=== PATIENT | male | born 1955 | race Caucasian/White ===

== ENCOUNTER 2023-04-16 09:51 | Inpatient (IN) | payer MEDICARE, SELFPAY ==
[2023-04-16] VITALS (11 sets, daily range): BP systolic 126–154; BP diastolic 71–86; PULSE 77–95; RESP 19–32; TEMP 36–36.9; O2SAT 92–96; BMI 29.2
--- NOTE | ~2023-04-16 | XR_ITS ---
Clinical Indication: Shortness of breath PA and lateral views of the chest: Comparison: 04/19/2018 Findings: There is mild haziness at the right middle lobe, suspicious for pneumonia.. Cardiomediasti nal silhouette is within normal limits. Bones and soft tissues are unremarkable. Impression: Right middle lobe pneumonia. Reviewed, dictated and finalized at [facility]. [employer]CTION SUPPORT DEVELOPER Impression: Right middle lobe pneumonia.
--- NOTE | ~2023-04-16 | CT_ITS ---
Clinical Indication: Shortness of CT Scan of the Chest with Contrast: Technique: Contiguous sections were acquired throughout the chest after intravenous administration of 100 cc of Omnipaque 350. Dose reduction technique was used on this scan by utilizing automated expos ure control and iterative reconstruction technique. The dose-length product (DLP) was 625.21 mGy-cm. Findings: Mildly prominent left hilar, paratracheal, and left AP window lymph nodes. Coronary artery calcificat ions are present. There is no filling defect in the pulmonary arterial tree to suggest pulmonary embo gera. There is no evidence of aortic dissection or aneurysm. There is no evidence of pleural or pericardial effusion. Respiratory motion artifact limits evaluation, but there is suspected mild patchy airspace disease an d/or tree-in-bud opacities in the right lower lobe and right middle lobe, as well as possibly in the inferior portions of the right upper lobe. Questionable minimal involvement versus minimal atelectati c change at the left lung base. Images through the upper abdomen reveal no abnormalities. Impression: No evidence of pulmonary embolus, aortic dissection, or aortic aneurysm. Suspected infectious process, predominantly involving the right lower and middle lobes, as detailed a omer. Motion somewhat confounded by respiratory motion artifact. Mildly prominent lymph nodes in the mediastinum, as above, presumably reactive. Correlate clinically for any possibility of lymphoma or other metastatic disease. Reviewed, dictated and finalized at [facility]. NING COACH Impression: No evidence of pulmonary embolus, aortic dissection, or aortic aneurysm. Suspected infectious process, predominantly involving the right lower and middl e lobes, as detailed above. Motion somewhat confounded by respiratory motion ar tifact. Mildly prominent lymph nodes in the mediastinum, as above, presumably reactive. Correlate clinically for any possibility of lymphoma or other metastatic disea se.
--- NOTE | ~2023-04-16 | US_ITS ---
US venous doppler [facility] DATE: 04/16/2023 12:03 INDICATION: Swelling of the lower extremities. Elevated d-dimer. TECHNIQUE: Real-time and color flow imaging and Doppler analysis of the veins of both lower extremiti es COMPARISON: None FINDINGS: The greater saphenous veins are patent. There is spontaneous and phasic flow and normal aug mentation and color flow signal and normal compression of the deep veins of both lower extremities. There is a roughly 2.6 x 3 cm complex mixed sonolucent, echogenic and calcified structure in the righ t popliteal area, with some shadowing from the calcifications, of uncertain significance. Consider fu rther evaluation with CT or MR examination. IMPRESSION: No evidence of deep venous thrombosis of either lower extremity Complex roughly 2.6 x 3 cm partially calcified lesion in the right popliteal area of uncertain signif icance. Consider CT or MR examination lesion Reviewed, dictated and finalized at [facility]. Reviewed, dictated and finalized at [facility]. C EDUCATION ADJUNCT PROFESSOR IMPRESSION: No evidence of deep venous thrombosis of either lower extremity Complex roughly 2.6 x 3 cm partially calcified lesion in the right popliteal ar ea of uncertain significance. Consider CT or MR examination lesion
--- NOTE | 2023-04-16 10:01 | ECG_ITS ---
Measurements Intervals [place] Rate: 87 P: -52 IA: 153 QRS: 21 QRSD: 97 T: 62 QT: 359 QTc: 433 Interpretive Statements ECTOPIC ATRIAL RHYTHM LOW QRS VOLTAGE IN LIMB LEADS BASELINE ARTIFACT- II, AVR, V1-V6 ABNORMAL ECG NO PREVIOUS ECG AVAILABLE FOR COMPARISON Electronically Signed On 04-16-2023 10:32:04 [employer] by Enzo Mondragon D.O.
[2023-04-16 10:21] LABS: Basophils Absolute Auto 0.1 K/mm3 (0.0-0.1); Basophils Percent Auto 0.9 % (0.2-1.2); Eosinophils Percent Auto 0.1 % (0-4.4); Hematocrit 46.3 % (42.0-52.0); Hemoglobin 14.6 g/dL (14.0-18.0); Immature Granulocyte Absolute 0.24 K/mm3 (0.00-0.031); Immature Granulocyte Percent A 2.7 % (0-0.5); Lymphocytes Absolute Auto 1.32 K/mm3 (0.9-3.2); Lymphocytes Percent Auto 14.7 % (18.3-44.2); Mean Corpuscular HGB Conc 31.5 g/dl (32-36); Mean Platelet Volume 10.2 fl (7.4-10.4); Monocytes Absolute Auto 1.3 K/mm3 (0.1-0.6); Monocytes Percent Auto 14.2 % (2.6-8.5); Neutrophils Absolute Auto 6.1 K/mm3 (1.3-6.7); Neutrophils Percent Auto 67.4 % (45.5-73.1); Nucleated Red Blood Cells Perc 0.4 % (0.0-0.2); Platelet Count Result 250 k/mm3 (150-375); Red Blood Count 5.03 M/mm3 (4.6-6.20)
--- NOTE | 2023-04-16 10:24 | ED.SOB ---
HPI - SOB/Dyspnea General Chief Complaint: Shortness of Breath/Dyspnea <Nellie Stanford PA-C - Last Filed: 04/16/23 13:17> Stated Complaint: sob with cough <Nellie Stanford PA-C - Last Filed: 04/16/23 13:17> Time Seen by Provider: 04/16/23 09:58 <Nellie Stanford PA-C - Last Filed: 04/16/23 13:17> Source: patient <AXEL Kumar Last Filed: 04/16/23 13:17> Mode of arrival: EMS <Nellie Stanford PA-C - Last Filed: 04/16/23 13:17> Limitations: no limitations <Nellie Stanfodr PA-C - Last Filed: 04/16/23 13:17> History of Present Illness HPI Narrative: This is a 67 year old male that presents to the ER for shortness of breath. Ongoing over the last week. Reports history of COPD. Reports he has had a productive cough. Reports subjective fevers. Reports pleuritic chest pain and lower extremity edema. Oxygen saturation low 90s at urgent care. Placed on 2L NC with improvement in his symptoms and sent to the ER for further evaluation. <Nellie Stanford PA-C - Last Filed: 04/16/23 13:17> Related Data Allergies/Adverse Reactions: Allergies Allergy/AdvReac Type Severity Reaction Status Date / Time No Known Allergies Allergy Verified 04/16/23 10:00 <Nellie Stanford PA-C - Last Filed: 04/16/23 13:17> Review of Systems Review of Systems: CONSTITUTIONAL: Denies fever CARDIOVASCULAR: Reports chest pain, and edema. RESPIRATORY: Reports cough and dyspnea. <Nellie Stanford PA-C - Last Filed: 04/16/23 13:17> All systems reviewed & are unremarkable except as noted in HPI and below <Nellie Stanford PA-C - Last Filed: 04/16/23 13:17> [facility] Past Medical History Medical History: Medical History (Updated 04/16/23 @ 13:14 by Nellie Stanford PA-C) History of COPD <Nellie Stanford PA-C - Last Filed: 04/16/23 13:17> Social History Social History: Social History (Updated 04/16/23 @ 11:46 by Nellie Stanford PA-C) Smoking status: Former smoker Tobacco type: cigarettes Alcohol intake: former Substance use: never Do You Feel Safe in your Home?: Yes Lack of Transportation: No Lack of Food: Never True Current Housing: I Have Housing Concerned About Future Housing: No Difficulty Paying Gas/Electric Bills: No Difficulty Paying for Meds: No Currently Unemployed: No Education: Trade/Vocational Certificate Difficulty w/ Childcare or Family Care: No Spiritual care concerns: No <Nellie Stanford PA-C - Last Filed: 04/16/23 13:17> Exam Narrative: GENERAL: Well-appearing, well-nourished, and in no acute distress. HEAD: Normocephalic, atraumatic. EYES: PERRLA and EOMI. ENT: Nares clear, no rhinorrhea or epistaxis. Mucous membranes moist. Oropharynx without tonsillar hypertrophy exudate or other lesions. Bilateral TMs pearly humphreys non-bulging NECK: Supple. No adenopathy or masses. CHEST: No respiratory distress. Rales in the right middle and lower lobes. Expiratory wheezing in the right lung. No rhonchi HEART: Regular rate and rhythm. No murmur heard. Normal peripheral pulses. ABDOMEN: Soft, nontender, nondistended, normal active bowel sounds. EXTREMITIES: Normal range of motion. Mild non-pitting edema bilaterally. SKIN: Warm, dry, no rash. NEURO: No focal deficits. Alert and oriented x3. PSYCH: Normal mood and affect <Nellie Stanford PA-C - Last Filed: 04/16/23 13:17> Course Course Emergency Course: Patient updated on his workup and need for admission <Nellie Stanford PA-C - Last Filed: 04/16/23 13:17> CHAPLAIN/PA Physician Supervision This visit was performed by both a physician and an APC. I performed all aspects of the MDM as documented. <Lorenzo Sampson MD - Last Filed: 04/16/23 17:00> Vital Signs Vital signs: Vital Signs Temperature 98.4 F 04/16/23 09:54 Pulse Rate 93 01/05/24 09:54 Respiratory Rate 28 H 04/16/23 09:54 Blood Pressure 154/85 H 04/16/23 09:54 Pulse Oximetry 92 04/16/23 09:54
[2023-04-16 10:32] LABS: Alanine Aminotransferase 42 U/L (6-50); Albumin Level 3.8 g/dL (3.5-5.1); Alkaline Phosphatase 104 U/L (38-126); Anion Gap 9 mmol/L (8-16); Aspartate Amino Transferase 59 U/L (17-59); Blood Urea Nitrogen 11 mg/dL (9-20); Calcium 9.2 mg/dL (8.4-10.2); Carbon Dioxide 27 mmol/L (22-30); Chloride 96 mmol/L (98-107); Estimated CRCL calculation 86 ml/min; Estimated Glomerular Filt Rate > 60; Glucose 112 mg/dL (65-110); Potassium 4.1 mmol/L (3.4-5.0); Sodium 132 mmol/L (137-145)
[2023-04-16] MEDS: methylPREDNISolone SOD SUCC 125 MG VIAL IV PUSH (10:46)
[2023-04-16] MEDS: ALBUTEROL SULFATE NEB 2.5 MG/3 ML INH INHALATION (10:51)
[2023-04-16] MEDS: IPRATROPIUM BR 0.02% INH SOLN 0.5 MG/2.5 ML VIAL INHALATION (10:51)
[2023-04-16 10:54] LABS: Alveolar/Arterial O2 Gradient 100.8 mmHg; Base Excess ABG 0.8 mEq/l (+/-2.0); Fractional Inspired Oxygen 28 %; HCO3 ABG 23.8 mEq/l (22.0-26.0); Methemoglobin ABG 0.3 %THb (0-1.5); Oxygen Content ABG 18.9 %vol (16.0-22.0); Oxygen Saturation ABG 92.5 % (95.0-100.0); Oxyhemoglobin 90.3 % THb (90.0-100.0); PCO2 ABG 33.5 mmHg (35.0-45.0); PO2 ABG 59.3 mmHg (80.0-100.0); PO2 FiO2 Ratio Arterial Blood 2.12 %; Reduced Hemoglobin 8.4 %THb (0-5.0); Site Drawn RIGHT RADIAL; Total Hemoglobin 14.9 g/dL (12.0-18.0)
[2023-04-16 10:55] LABS: Device NASAL CANNULA; Modified Allen's Test Pass
[2023-04-16 10:57] LABS: Influenza A QL RT-PCR Positive (Negative); Influenza B QL RT-PCR Negative (Negative); RSV RNA, RT-PCR Negative (Negative); SARS-CoV-2 RNA PCR Negative (Negative)
[2023-04-16 11:00] LABS: D Dimer 2.27 ug/mL (<0.48)
[2023-04-16 11:03] LABS: NT Pro B Type Natriuretic Pept 185 pg/mL (19.9-100)
[2023-04-16] MEDS: OSELTAMIVIR PHOSPHATE 75 MG CAPSULE PO (12:48)
[2023-04-16] MEDS: AZITHROMYCIN 500 MG/NS 250 ML 500 MG/250 ML BAG 250 MG IVPB (12:48)
[2023-04-16 12:53] LABS: Troponin I < 0.012 ng/mL (0.000-0.034)
--- NOTE | 2023-04-16 14:29 | ADMGEN ---
This patient, Jose R Hart, was admitted to Medical Room 258-01. Patient/family oriented to hospital policies and general routines including ID bracelet, bed and alarms, visiting hours, pain management, procedures, bathroom and other care routines, personal items, smoking policy, room service/diet, and visiting hours. Information on how to activate the Rapid Response Team has been discussed. Patient/Family are encouraged to report perceived risks to care and to ask questions if they do not understand what they are told or what they should do.
--- NOTE | 2023-04-16 22:41 | PM.IMHP ---
H&P: HPI History of Present Illness Date/Time: 04/16/23 22:41 Chief Complaint: SOB Narrative: 67-year-old male presents here with shortness of breath with past medical history of COPD and pediatric asthma. Patient reports worsening shortness of breath over the last week accompanied by intermittently productive cough, subjective low-grade fevers, fatigue, and activity intolerance. Reports that in the last week he has been trying to rest at home to recover, no medications or inhalers tried. Has been unable to tolerate activity. States when he would use the stairs he would have to rest for 4-5 minutes before he was able to catch his breath. Today shortness of breath became significantly worse and patient was convinced to seek treatment in the emergency department. Has history of COPD, reports some skepticism of diagnosis but does report history of intermittent shortness of breath over the years and inhaler use ranging from once monthly to 4 times a week max. He is a former smoker. After arrival to the ED he was found to be hypoxic on room air with O2 sat ranging from 88-92%. Placed on 2 L and now maintaining O2 sat above 95%. He does not have a previous history of supplemental O2 need. Workup revealed a normal WBC, normal hgb, elevated D-dimer, mild hyponatremia, normal BNP, and +Flu A. CXR showed right middle lobe pneumonia. CTA of chest done and showed no PE and redemonstrated pneumonia. Review of Systems Review of Systems: All systems reviewed & are unremarkable except as noted in HPI and below PMFSH Past Medical History Medical History Asthma Childhood Asthma COPD (chronic obstructive pulmonary disease) Former smoker Surgical History Surgical History History of inguinal hernia repair History of surgical amputation of finger L finger x1, surgery on additional finger on left hand Social History Social History Smoking status: Former smoker Tobacco type: cigarettes Alcohol intake: former Substance use: never Do You Feel Safe in your Home?: Yes Lack of Transportation: No Lack of Food: Never True Current Housing: I Have Housing Concerned About Future Housing: No Difficulty Paying Gas/Electric Bills: No Difficulty Paying for Meds: No Currently Unemployed: No Education: Trade/Vocational Certificate Difficulty w/ Childcare or Family Care: No Spiritual care concerns: No Meds Home Medications and Allergies Allergies Allergy/AdvReac Type Severity Reaction Status Date / Time No Known Allergies Allergy Verified 04/16/23 10:00 Vital Signs Vital Signs - 24 hr 04/16/23 09:54 04/16/23 09:59 04/16/23 10:02 Temperature 98.4 F Pulse Rate 93 89 Respiratory Rate 28 H Blood Pressure 154/85 H Pulse Oximetry 92 95 Oxygen Delivery Room Air Nasal Cannula Oxygen Flow Rate 2 04/16/23 10:50 04/16/23 11:03 04/16/23 12:56 Temperature Pulse Rate 88 88 95 Respiratory Rate 23 H 23 H 25 H Blood Pressure 131/71 Pulse Oximetry 95 Oxygen Delivery Oxygen Flow Rate 04/16/23 13:41 04/16/23 14:57 04/16/23 14:46 Temperature 96.8 F L Pulse Rate 91 90 Respiratory Rate 19 32 H Blood Pressure 142/84 H 126/86 Pulse Oximetry 95 95 95 Oxygen Delivery Nasal Cannula Oxygen Flow Rate 2 04/16/23 19:59 04/16/23 20:00 Temperature 97.3 F L Pulse Rate 77 Respiratory Rate 20 Blood Pressure 127/76 Pulse Oximetry 96 96 Oxygen Delivery Nasal Cannula Oxygen Flow Rate 2 Exam Const: General: comfortable Other: [id number] respiratory distress. HENMT: Face/Nose/Sinus: Normal nares present Mouth: Yes dry mucous membranes Eyes: General: appearance normal, both eyes and all related structures Sclera: sclerae normal Pupils: Equal, round and reactive pupils present EOM: EOMs intact bilaterally Other: 3 mm bilateral Re
[2023-04-17] VITALS (8 sets, daily range): BP systolic 137–147; BP diastolic 73–83; PULSE 80–90; RESP 18–24; TEMP 36.3–36.9; O2SAT 93–96
[2023-04-17] MEDS: SODIUM CHLORIDE 0.9% IV 1,000 ML 999 ML IV CONT ×2 (01:14→02:23)
[2023-04-17] MEDS: ALBUTEROL SULFATE NEB 2.5 MG/3 ML INH INHALATION (01:51)
[2023-04-17] MEDS: IPRATROPIUM BR 0.02% INH SOLN 0.5 MG/2.5 ML VIAL INHALATION (01:51)
[2023-04-17 02:11] LABS: Lactic Acid Reflex 1.2 mmol/L (0.7-2.0)
[2023-04-17] MEDS: SODIUM CHLORIDE 0.9% IV 1,000 ML 100 ML IV CONT (05:26)
[2023-04-17 05:56] LABS: Lactic Acid Reflex 0.9 mmol/L (0.7-2.0)
[2023-04-17 05:57] LABS: Anion Gap 7 mmol/L (8-16); Blood Urea Nitrogen 14 mg/dL (9-20); Calcium 8.4 mg/dL (8.4-10.2); Carbon Dioxide 25 mmol/L (22-30); Chloride 103 mmol/L (98-107); Estimated CRCL calculation 97 ml/min; Estimated Glomerular Filt Rate > 60; Glucose 142 mg/dL (65-110); Potassium 4.2 mmol/L (3.4-5.0); Sodium 135 mmol/L (137-145)
[2023-04-17 06:02] LABS: Basophils Absolute Auto 0.1 K/mm3 (0.0-0.1); Basophils Percent Auto 0.7 % (0.2-1.2); Hematocrit 41.3 % (42.0-52.0); Hemoglobin 13.2 g/dL (14.0-18.0); Immature Granulocyte Absolute 0.34 K/mm3 (0.00-0.031); Immature Granulocyte Percent A 3.4 % (0-0.5); Lymphocytes Absolute Auto 1.35 K/mm3 (0.9-3.2); Lymphocytes Percent Auto 13.5 % (18.3-44.2); Mean Corpuscular Hemoglobin 29.6 pg (26-34); Mean Corpuscular Volume 92.6 fl (80-100); Mean Platelet Volume 9.9 fl (7.4-10.4); Monocytes Absolute Auto 0.6 K/mm3 (0.1-0.6); Monocytes Percent Auto 6.2 % (2.6-8.5); Neutrophils Absolute Auto 7.7 K/mm3 (1.3-6.7); Neutrophils Percent Auto 76.2 % (45.5-73.1); Nucleated Red Blood Cells Perc 0.2 % (0.0-0.2); Platelet Count Result 270 k/mm3 (150-375); Red Blood Count 4.46 M/mm3 (4.6-6.20); Red Cell Distribution Width 13.8 % (11.5-14.5)
[2023-04-17] MEDS: predniSONE 20 MG TABLET 40 MG PO (08:06)
[2023-04-17] MEDS: AZITHROMYCIN 500 MG/NS 250 ML 500 MG/250 ML BAG 250 MG IVPB (08:06)
[2023-04-17] MEDS: ENOXAPARIN 40 MG/0.4 ML SYRINGE SUB-Q (08:07)
[2023-04-17] MEDS: guaiFENesin 12 HR 600 MG TABCR 1200 MG PO ×2 (08:07→20:22)
[2023-04-17 08:26] LABS: MRSA (PCR) NOT DETECTED (NOT DETECTE)
--- NOTE | 2023-04-17 11:26 | PM.IMPN ---
Progress Note: A&P Assessment and Plan (1) Acute hypoxic respiratory failure: Code(s): J96.01 - Acute respiratory failure with hypoxia Status: Acute Assessment and Plan: Flu A+. Does meet SIRS criteria: HR and RR. Initial hypoxia on room air, 88-92%. CXR: right middle lobe pneumonia. CTA of chest: no evidence of pulmonary embolus, aortic dissection, or aortic aneurysm. Suspected infectious process, predominantly involving the right lower and middle lobes, as detailed above. Motion somewhat confounded by respiratory motion artifact.Mildly prominent lymph nodes in the mediastinum, as above, presumably reactive. Correlate clinically for any possibility of lymphoma or other metastatic disease. Patient currently on 3 L of O2 wean oxygen to maintain saturation greater than 92%. (2) Pneumonia: Qualifiers: Laterality: right Lung location: middle lobe of lung Pneumonia type: due to unspecified organism Qualified Code(s): J18.9 - Pneumonia, unspecified organism Code(s): J18.9 - Pneumonia, unspecified organism Status: Acute Assessment and Plan: Chest x-ray showing right middle lobe pneumonia Started on ceftriaxone and azithromycin on 04/16. Due to cocurrent COPD, will add prednisone 40 mg PO daily x5 days. Add sputum culture MRSA screen neg. Nebs PRN Continue supportive measures. (3) Influenza A: Code(s): J10.1 - Influenza due to other identified influenza virus with other respiratory manifestations Status: Acute Assessment and Plan: Patient began feeling ill 7 days ago. Tamiflu not indicated. Nebulizers p.r.n., Zofran p.r.n., Tylenol p.r.n., Mucinex scheduled, Tessalon Perles p.r.n. Subjective Date/time seen: 04/17/23 11:26 Interval history: patient states that he is feeling better today. His shortness of breath has improved. He does not have any chest pain at this time or pain with deep breathing. He does have some sputum production although not much. He continues to be on oxygen requiring 3 L at this time. Continue to try to wean oxygen. Exam Narrative: GENERAL: Comfortable, no acute distress HENMT: moist mucous membranes EYES: EOM intact b/l NECK: no lymphadenopathy RESPIRATORY: bibasilar crackles, on 3 L CARDIO: RRR GI: soft, nontender, bowel sounds present SKIN: no rashes EXTREMITIES: no edema, redness or tenderness Objective Data Vital Signs Vital Signs: Vital Signs - 24 hr 04/16/23 12:56 04/16/23 13:41 04/16/23 14:57 Temperature Pulse Rate 95 91 Respiratory Rate 25 H 19 Blood Pressure 131/71 142/84 H Pulse Oximetry 95 95 95 Oxygen Delivery Nasal Cannula Oxygen Flow Rate 2 04/16/23 14:46 04/16/23 19:59 04/16/23 20:00 Temperature 96.8 F L 97.3 F L Pulse Rate 90 77 Respiratory Rate 32 H 20 Blood Pressure 126/86 127/76 Pulse Oximetry 95 96 96 Oxygen Delivery Nasal Cannula Oxygen Flow Rate 2 04/17/23 01:52 04/17/23 01:53 04/17/23 02:01 Temperature Pulse Rate 80 90 90 Respiratory Rate 18 22 H 23 H Blood Pressure Pulse Oximetry 96 Oxygen Delivery Nasal Cannula Oxygen Flow Rate 3 04/17/23 03:10 04/17/23 08:00 Temperature 97.3 F L Pulse Rate 80 Respiratory Rate 20 Blood Pressure 137/77 Pulse Oximetry 93 94 Oxygen Delivery Nasal Cannula Oxygen Flow Rate 3 Intake/Output Intake/Output: Intake & Output 04/14/23 04/15/23 04/16/23 04/17/23 23:59 23:59 23:59 23:59 Intake Total 1240 1040 Balance 1240 1040 Meds/Results Medications: Active Medications Generic Name Dose Route Start Last Admin Trade Name Freq PRN Reason Stop Dose Admin Albuterol 2.5 mg 04/17/23 00:48 04/17/23 01:51 Albuterol Sulfate Neb 2.5 Mg/3 Ml Inh INHALATION 2.5 mg Q4HRT PRN Administration Shortness Of Breath Benzonatate 100 mg 04/17/23 01:07 Benzonatate 100 Mg Capsule PO TID PRN Cough Enoxaparin Sodium
[2023-04-17] MEDS: bisoproloL fumarate 5 MG TABLET PO (12:34)
[2023-04-18] VITALS (10 sets, daily range): BP systolic 138–178; BP diastolic 67–83; PULSE 61–93; RESP 20; TEMP 36.3–36.6; O2SAT 94–98
[2023-04-18 05:39] LABS: Basophils Absolute Auto 0.1 K/mm3 (0.0-0.1); Basophils Percent Auto 0.8 % (0.2-1.2); Hematocrit 41.2 % (42.0-52.0); Immature Granulocyte Absolute 0.73 K/mm3 (0.00-0.031); Immature Granulocyte Percent A 4.8 % (0-0.5); Lymphocytes Absolute Auto 2.03 K/mm3 (0.9-3.2); Lymphocytes Percent Auto 13.3 % (18.3-44.2); Mean Corpuscular HGB Conc 31.6 g/dl (32-36); Mean Corpuscular Hemoglobin 29.4 pg (26-34); Mean Corpuscular Volume 93.2 fl (80-100); Mean Platelet Volume 9.9 fl (7.4-10.4); Monocytes Absolute Auto 1.2 K/mm3 (0.1-0.6); Monocytes Percent Auto 7.9 % (2.6-8.5); Neutrophils Absolute Auto 11.2 K/mm3 (1.3-6.7); Neutrophils Percent Auto 73.2 % (45.5-73.1); Nucleated Red Blood Cells Perc 0.3 % (0.0-0.2); Platelet Count Result 315 k/mm3 (150-375); Red Blood Count 4.42 M/mm3 (4.6-6.20); Red Cell Distribution Width 13.9 % (11.5-14.5); White Blood Count 15.3 K/mm3 (4.5-10.0)
[2023-04-18 05:53] LABS: Alanine Aminotransferase 76 U/L (6-50); Albumin Level 3.1 g/dL (3.5-5.1); Alkaline Phosphatase 98 U/L (38-126); Anion Gap 5 mmol/L (8-16); Aspartate Amino Transferase 80 U/L (17-59); Bilirubin,Total 0.4 mg/dL (0.2-1.3); Blood Urea Nitrogen 19 mg/dL (9-20); Calcium 8.4 mg/dL (8.4-10.2); Carbon Dioxide 25 mmol/L (22-30); Chloride 106 mmol/L (98-107); Estimated CRCL calculation 97 ml/min; Estimated Glomerular Filt Rate > 60; Glucose 107 mg/dL (65-110); Sodium 136 mmol/L (137-145)
[2023-04-18] MEDS: predniSONE 20 MG TABLET 40 MG PO (08:30)
[2023-04-18] MEDS: SIMVASTATIN 20 MG TABLET 40 MG PO (08:30)
[2023-04-18] MEDS: AZITHROMYCIN 500 MG/NS 250 ML 500 MG/250 ML BAG 250 MG IVPB (08:30)
[2023-04-18] MEDS: ramipriL 5 MG CAPSULE 10 MG PO (08:30)
[2023-04-18] MEDS: guaiFENesin 12 HR 600 MG TABCR 1200 MG PO ×2 (08:30→20:07)
[2023-04-18] MEDS: ENOXAPARIN 40 MG/0.4 ML SYRINGE SUB-Q (08:31)
[2023-04-18] MEDS: bisoproloL fumarate 5 MG TABLET PO (08:31)
--- NOTE | 2023-04-18 12:30 | PM.IMPN ---
Progress Note: A&P Assessment and Plan (1) Acute hypoxic respiratory failure: Code(s): J96.01 - Acute respiratory failure with hypoxia Status: Acute Assessment and Plan: Flu A+. Does meet SIRS criteria: HR and RR. Initial hypoxia on room air, 88-92%. CXR: right middle lobe pneumonia. CTA of chest: no evidence of pulmonary embolus, aortic dissection, or aortic aneurysm. Suspected infectious process, predominantly involving the right lower and middle lobes, as detailed above. Motion somewhat confounded by respiratory motion artifact.Mildly prominent lymph nodes in the mediastinum, as above, presumably reactive. Correlate clinically for any possibility of lymphoma or other metastatic disease. Patient currently on 3 L of O2 wean oxygen to maintain saturation greater than 92%. (2) Pneumonia: Qualifiers: Laterality: right Lung location: middle lobe of lung Pneumonia type: due to unspecified organism Qualified Code(s): J18.9 - Pneumonia, unspecified organism Code(s): J18.9 - Pneumonia, unspecified organism Status: Acute Assessment and Plan: Chest x-ray showing right middle lobe pneumonia Started on ceftriaxone and azithromycin on 04/16. Due to cocurrent COPD, will add prednisone 40 mg PO daily x5 days. Add sputum culture MRSA screen neg. Nebs MARAL Continue supportive measures. (3) Influenza A: Code(s): J10.1 - Influenza due to other identified influenza virus with other respiratory manifestations Status: Acute Assessment and Plan: Patient began feeling ill 7 days ago. Tamiflu not indicated. Nebulizers p.r.n., Zofran p.r.n., Tylenol p.r.n., Mucinex scheduled, Tessalon Perles p.r.n. Subjective Date/time seen: 04/18/23 12:30 Interval history: Patient continues to have shortness of breath. Being treated for pneumonia and COPD exacerbation. His jump in white count was likely from steroids. Due to continued shortness of breath will start patient on scheduled nebulizer treatments. He continues to have cough and wheezing. Patient's cough is productive. Continue to try to wean patient off oxygen. He is currently still on 3 L. Exam Narrative: GENERAL: Comfortable, no acute distress HENMT: moist mucous membranes EYES: EOM intact b/l NECK: no lymphadenopathy RESPIRATORY: bibasilar crackles and wheezing, on 3 L, shortness of breath with talking CARDIO: RRR GI: soft, nontender, bowel sounds present SKIN: no rashes EXTREMITIES: no edema, redness or tenderness Objective Data Vital Signs Vital Signs: Vital Signs - 24 hr 04/17/23 14:55 04/17/23 20:33 04/17/23 20:00 Temperature 98.4 F 97.4 F L Pulse Rate 80 85 Respiratory Rate 24 H 20 Blood Pressure 147/83 H 144/73 H Pulse Oximetry 94 95 95 Oxygen Delivery Nasal Cannula Oxygen Flow Rate 3 04/18/23 04:43 04/18/23 08:25 Temperature 97.3 F L Pulse Rate 69 Respiratory Rate 20 Blood Pressure 156/83 H Pulse Oximetry 95 95 Oxygen Delivery Nasal Cannula Oxygen Flow Rate 3 Intake/Output Intake/Output: Intake & Output 04/15/23 04/16/23 04/17/23 04/18/23 23:59 23:59 23:59 23:59 Intake Total 1240 1920 1090 Balance 1240 1920 1090 Meds/Results Medications: Active Medications Generic Name Dose Route Start Last Admin Trade Name Freq PRN Reason Stop Dose Admin Albuterol 2.5 mg 04/18/23 14:00 Albuterol Sulfate Neb 2.5 Mg/3 Ml Inh INHALATION Q6HRT [facility] Benzonatate 100 mg 04/17/23 01:07 Benzonatate 100 Mg Capsule PO TID PRN Cough Bisoprolol Fumarate 5 mg 04/18/23 09:00 04/18/23 08:31 Bisoprolol Fumarate 5 Mg Tablet PO 5 mg DAILY [facility] Administration Enoxaparin Sodium 40 mg 04/17/23 09:00 04/18/23 08:31 Enoxaparin 40 Mg/0.4 Ml Syringe SUB-Q 40 mg DAILY [facility] Administration Guaifenesin 1,200 mg 04/17/23 09:00 04/18/23 08:30 Guaifenesin 12 Hr 600 Mg Tabcr PO 1,200 mg Q12HR [facility]
[2023-04-18] MEDS: IPRATROPIUM BR 0.02% INH SOLN 0.5 MG/2.5 ML VIAL INHALATION ×2 (15:06→19:48)
[2023-04-18] MEDS: ALBUTEROL SULFATE NEB 2.5 MG/3 ML INH INHALATION ×2 (15:06→19:48)
[2023-04-19] VITALS (13 sets, daily range): BP systolic 147–176; BP diastolic 67–86; PULSE 64–74; RESP 18–20; TEMP 36–36.5; O2SAT 94–100
[2023-04-19 06:19] LABS: Hematocrit 40.5 % (42.0-52.0); Hemoglobin 12.5 g/dL (14.0-18.0); Mean Corpuscular HGB Conc 30.9 g/dl (32-36); Mean Corpuscular Hemoglobin 29.6 pg (26-34); Mean Corpuscular Volume 95.7 fl (80-100); Platelet Count Result 301 k/mm3 (150-375); Red Blood Count 4.23 M/mm3 (4.6-6.20); Red Cell Distribution Width 14.1 % (11.5-14.5)
[2023-04-19 06:48] LABS: Alanine Aminotransferase 67 U/L (6-50); Albumin Level 2.9 g/dL (3.5-5.1); Alkaline Phosphatase 87 U/L (38-126); Anion Gap 4 mmol/L (8-16); Aspartate Amino Transferase 45 U/L (17-59); Bilirubin,Total 0.3 mg/dL (0.2-1.3); Blood Urea Nitrogen 16 mg/dL (9-20); Calcium 8.1 mg/dL (8.4-10.2); Carbon Dioxide 27 mmol/L (22-30); Chloride 105 mmol/L (98-107); Estimated CRCL calculation 111 ml/min; Estimated Glomerular Filt Rate > 60; Glucose 81 mg/dL (65-110); Potassium 3.8 mmol/L (3.4-5.0); Sodium 136 mmol/L (137-145)
[2023-04-19] MEDS: ALBUTEROL SULFATE NEB 2.5 MG/3 ML INH INHALATION ×3 (07:10→22:04)
[2023-04-19] MEDS: IPRATROPIUM BR 0.02% INH SOLN 0.5 MG/2.5 ML VIAL INHALATION ×3 (07:10→22:04)
[2023-04-19] MEDS: bisoproloL fumarate 5 MG TABLET PO (10:12)
[2023-04-19] MEDS: predniSONE 20 MG TABLET 40 MG PO (10:12)
[2023-04-19] MEDS: ramipriL 5 MG CAPSULE 10 MG PO (10:13)
[2023-04-19] MEDS: guaiFENesin 12 HR 600 MG TABCR 1200 MG PO ×2 (10:13→20:23)
[2023-04-19] MEDS: SIMVASTATIN 20 MG TABLET 40 MG PO (10:13)
[2023-04-19] MEDS: ENOXAPARIN 40 MG/0.4 ML SYRINGE SUB-Q (10:14)
[2023-04-19] MEDS: AZITHROMYCIN 500 MG/NS 250 ML 500 MG/250 ML BAG 250 MG IVPB (11:04)
--- NOTE | 2023-04-19 11:10 | PM.IMPN ---
Progress Note: A&P Assessment and Plan (1) Acute hypoxic respiratory failure: Code(s): J96.01 - Acute respiratory failure with hypoxia Status: Acute Assessment and Plan: Flu A+. Does meet SIRS criteria: HR and RR. Initial hypoxia on room air, 88-92%. CXR: right middle lobe pneumonia. CTA of chest: no evidence of pulmonary embolus, aortic dissection, or aortic aneurysm. Suspected infectious process, predominantly involving the right lower and middle lobes, as detailed above. Motion somewhat confounded by respiratory motion artifact.Mildly prominent lymph nodes in the mediastinum, as above, presumably reactive. Correlate clinically for any possibility of lymphoma or other metastatic disease. Patient currently on 3 L of O2 wean oxygen to maintain saturation greater than 92%. (2) Pneumonia: Qualifiers: Laterality: right Lung location: middle lobe of lung Pneumonia type: due to unspecified organism Qualified Code(s): J18.9 - Pneumonia, unspecified organism Code(s): J18.9 - Pneumonia, unspecified organism Status: Acute Assessment and Plan: Chest x-ray showing right middle lobe pneumonia Started on ceftriaxone and azithromycin on 04/16. Due to cocurrent COPD, will add prednisone 40 mg PO daily x5 days. Add sputum culture MRSA screen neg. Nebs MARAL Continue supportive measures. (3) Influenza A: Code(s): J10.1 - Influenza due to other identified influenza virus with other respiratory manifestations Status: Acute Assessment and Plan: Patient began feeling ill 7 days ago. Tamiflu not indicated. Nebulizers p.r.n., Zofran p.r.n., Tylenol p.r.n., Mucinex scheduled, Tessalon Perles p.r.n. Subjective Date/time seen: 04/19/23 11:10 Interval history: Patient is improved from yesterday. Found him at 100% on 3L and asked the nurse to wean him down. He states that he is less short of breath than yesterday. Continuing to have a productive cough. He still is wheezing but improved from yesterday. Continue breathing treatments at this time. Exam Narrative: GENERAL: Comfortable, no acute distress HENMT: moist mucous membranes EYES: EOM intact b/l NECK: no lymphadenopathy RESPIRATORY: bibasilar crackles and wheezing, on 3 L -- improving. CARDIO: RRR GI: soft, nontender, bowel sounds present SKIN: no rashes EXTREMITIES: no edema, redness or tenderness Objective Data Vital Signs Vital Signs: Vital Signs - 24 hr 04/18/23 15:07 04/18/23 15:23 04/18/23 14:00 Temperature 97.8 F Pulse Rate 92 93 68 Respiratory Rate 20 20 20 Blood Pressure 178/83 H Pulse Oximetry 97 Oxygen Delivery Oxygen Flow Rate 04/18/23 19:50 04/18/23 20:01 04/18/23 20:30 Temperature 97.6 F Pulse Rate 61 68 66 Respiratory Rate 20 20 20 Blood Pressure 138/67 Pulse Oximetry 94 Oxygen Delivery Oxygen Flow Rate 04/18/23 20:00 04/19/23 04:20 04/18/23 22:00 Temperature 96.8 F L Pulse Rate 64 Respiratory Rate 20 Blood Pressure 147/67 H Pulse Oximetry 94 100 98 Oxygen Delivery Nasal Cannula Nasal Cannula Oxygen Flow Rate 3 3 04/19/23 07:10 04/19/23 07:10 04/19/23 07:20 Temperature Pulse Rate 64 64 68 Respiratory Rate 18 18 18 Blood Pressure Pulse Oximetry 96 Oxygen Delivery Nasal Cannula Oxygen Flow Rate 3 04/19/23 10:10 04/19/23 10:12 Temperature Pulse Rate 72 73 Respiratory Rate Blood Pressure 170/76 H Pulse Oximetry 96 Oxygen Delivery Oxygen Flow Rate Intake/Output Intake/Output: Intake & Output 04/16/23 04/17/23 04/18/23 04/19/23 23:59 23:59 23:59 23:59 Intake Total 1240 1920 2120 1210 Balance 1240 1920 2120 1210 Meds/Results Medications: Active Medications Generic Name Dose Route Start Last Admin Trade Name Aurelioq PRN Reason Stop Dose Admin Albuterol 2.5 mg 04/18/23 14:00 04/19/23 07:10 Albuterol Sulfate Neb 2.5 Mg/3 Ml Inh INH
[2023-04-19] MEDS: AZITHROMYCIN 250 MG TABLET 500 MG PO (15:57)
[2023-04-20] VITALS (7 sets, daily range): BP systolic 172–184; BP diastolic 91–95; PULSE 65–75; RESP 16–20; TEMP 35.5–36.1; O2SAT 93–95
[2023-04-20] MEDS: IPRATROPIUM BR 0.02% INH SOLN 0.5 MG/2.5 ML VIAL INHALATION ×2 (02:02→08:38)
[2023-04-20] MEDS: ALBUTEROL SULFATE NEB 2.5 MG/3 ML INH INHALATION ×2 (02:02→08:38)
[2023-04-20 06:09] LABS: Hematocrit 42.6 % (42.0-52.0); Hemoglobin 13.6 g/dL (14.0-18.0); Mean Corpuscular HGB Conc 31.9 g/dl (32-36); Mean Corpuscular Hemoglobin 29.4 pg (26-34); Mean Corpuscular Volume 92.2 fl (80-100); Mean Platelet Volume 9.4 fl (7.4-10.4); Platelet Count Result 310 k/mm3 (150-375); Red Blood Count 4.62 M/mm3 (4.6-6.20); Red Cell Distribution Width 13.9 % (11.5-14.5); White Blood Count 11.7 K/mm3 (4.5-10.0)
[2023-04-20 06:17] LABS: Alanine Aminotransferase 58 U/L (6-50); Albumin Level 3.3 g/dL (3.5-5.1); Alkaline Phosphatase 81 U/L (38-126); Anion Gap 6 mmol/L (8-16); Aspartate Amino Transferase 35 U/L (17-59); Bilirubin,Total 0.5 mg/dL (0.2-1.3); Blood Urea Nitrogen 14 mg/dL (9-20); Calcium 8.7 mg/dL (8.4-10.2); Carbon Dioxide 29 mmol/L (22-30); Chloride 103 mmol/L (98-107); Estimated CRCL calculation 86 ml/min; Estimated Glomerular Filt Rate > 60; Glucose 82 mg/dL (65-110); Sodium 138 mmol/L (137-145)
[2023-04-20] MEDS: guaiFENesin 12 HR 600 MG TABCR 1200 MG PO (08:07)
[2023-04-20] MEDS: ramipriL 5 MG CAPSULE 10 MG PO (08:07)
[2023-04-20] MEDS: SIMVASTATIN 20 MG TABLET 40 MG PO (08:08)
[2023-04-20] MEDS: AZITHROMYCIN 250 MG TABLET 500 MG PO (08:08)
[2023-04-20] MEDS: predniSONE 20 MG TABLET 40 MG PO (08:08)
[2023-04-20] MEDS: ENOXAPARIN 40 MG/0.4 ML SYRINGE SUB-Q (08:09)
[2023-04-20] MEDS: AMOXICILLIN/CLAVULANATE K 875-125 MG TAB 1 TABLET PO (08:09)
[2023-04-20] MEDS: bisoproloL fumarate 5 MG TABLET PO (08:09)
--- NOTE | 2023-04-20 11:06 | PM.DS ---
DS: Admitting Diagnosis Discharge Date 04/20/23 Admitting Diagnosis FLU A positive, hypoxia DS: Discharge Diagnosis Discharge Diagnosis (1) Acute hypoxic respiratory failure: Code(s): J96.01 - Acute respiratory failure with hypoxia Status: Acute (2) Pneumonia: Qualifiers: Laterality: right Lung location: middle lobe of lung Pneumonia type: due to unspecified organism Qualified Code(s): J18.9 - Pneumonia, unspecified organism Code(s): J18.9 - Pneumonia, unspecified organism Status: Acute (3) Influenza A: Code(s): J10.1 - Influenza due to other identified influenza virus with other respiratory manifestations Status: Acute DS: Summary Hospital Course Hospital Course: This is a 67-year-old male with a past medical history of COPD and pediatric asthma that presents to the ED on 04/16/2023 with complaints of low-grade fever, fatigue and activity intolerance. His shortness of breath had been worse so he decided to come to the ED to get checked out. Patient had increased the amount of times he uses inhaler. He was found to be hypoxic and was started on 3 L. Workup revealed a normal WBC, normal hgb, elevated D-dimer, mild hyponatremia, normal BNP, and +Flu A.? CXR showed right middle lobe pneumonia.? CTA of chest done and showed no PE and redemonstrated pneumonia. Patient was started on Rocephin and azithromycin. His oxygen was able to be read down and antibiotics were deceleration to PO. Tamiflu was not started on the patient due to patient being outside of her the window for it. Labs above patient is medically cleared for discharge at this time. Time Spent with Patient Time attestation: Total time spent providing and/or coordinating discharge services: Exam Narrative: GENERAL: Comfortable, no acute distress HENMT: moist mucous membranes EYES: EOM intact b/l NECK: no lymphadenopathy RESPIRATORY: distant breath sounds although clear to auscultation CARDIO: RRR GI: soft, nontender, bowel sounds present SKIN: no rashes EXTREMITIES: no edema, redness or tenderness DS: Data Data Completed and Pending Labs on day of discharge: Labs from last 24 hours 04/20/23 05:33 WBC 11.7 H RBC 4.62 Hgb 13.6 L Hct 42.6 MCV 92.2 MCH 29.4 MCHC 31.9 L RDW 13.9 Plt Count 310 MPV 9.4 Sodium 138 Potassium 4.0 Chloride 103 Carbon Dioxide 29 Anion Gap 6 L BUN 14 Creatinine 0.80 Estim Creat Clear Calc 86 Estimated GFR > 60 Glucose 82 Calcium 8.7 Total Bilirubin 0.5 AST 35 ALT 58 H Alkaline Phosphatase 81 Total Protein 6.0 L Albumin 3.3 L Preliminary micro results at discharge 04/16/23 12:18 Blood Culture - Preliminary Blood Discharge Plan Discharge Consulting providers: Nellie Stanford Discharging Clinician: Liudmila Dougherty Patient Disposition: Home, Self-Care Activity: as tolerated Diet: regular Discharge Instructions: Medications: Augmentin twice a day. Next dose tonight. Prednisone 40 mg daily. Next dose tomorrow. Albuterol inhaler as needed. Take home inhalers as prescribed. Influenza: Wear a mask in public, and stay away from large crowds Eat well balanced meals and stay hydrated Keep active, but do not over do it No running marathons, riding your bike, or any other activity that is not mild If you notice that you are short of breath sit down and take a break Check your SPO2 periodically, if it is low cough and rest, check again in about 15 minutes, if you remain low, you should come back to the hospital If you should experience any chest pain, shortness of breath, temps >100.4 or any other worrisome symptoms please follow up with your PCP come back to the hospital Is important to know that you will feel worse before you get better. Can feel ill up to 14 days. May take [id number] decongestants and cough medicine for symptom control. Tylenol 500 mg every 4 hours as needed for fever and body aches.
== END 2023-04-20 11:55 | disposition home or self-care (01) | DRG 193 ==
LOC: ANHED 13:17 → ANH2MED 13:47
PROVIDERS: Internal Medicine; Student in an Organized Health Care Education/Training Program; Admitting Provider General Practice; Emergency Provider Physician Assistant; PCP Physician Assistant; Visit Provider Internal Medicine Critical Care Medicine
DX: J10.01 Influenza due to other identified influenza virus with the same other identified influenza virus pneumonia (principal); J96.01 Acute respiratory failure with hypoxia; J44.0 Chronic obstructive pulmonary disease with (acute) lower respiratory infection; R65.10 Systemic inflammatory response syndrome (SIRS) of non-infectious origin without acute organ dysfunction; E87.1 Hypo-osmolality and hyponatremia; Z87.891 Personal history of nicotine dependence; Z20.822 Contact with and (suspected) exposure to COVID-19
CPT/HCPCS: 36415; 36600; 71046; 71275; 80048; 80053; 82375; 82805; 83050; 83605; 83880; 84484; 85025; 85027; 85380; 87040; 87076; 87637; 87641; 93005; 93970; 94640; 96365; 96367; 96375; 99291; A9270; G0378; J0456; J0696; J1650; J2930; J7030; J7512; Q9967